=== PATIENT | male | born 1965 | race Caucasian/White ===

== ENCOUNTER 2016-09-16 16:10 | Inpatient (IN) | payer MEDICARE, OTHER ==
[~2016-09-16] VITALS: Ht 167.6 cm; Wt 71.0 kg
[~2016-09-16 16:10] MED LIST: ATOM10 PO; FLUO-191 PO; LAMO25 PO; OLAN7.5T9 PO; PRAZ1 PO
[2016-09-16] MEDS ORDERED: ZOLPIDEM TARTRATE 10 MG TABLET PO PRN (19:45)
[2016-09-16 20:28] VITALS: BP 114/88
[2016-09-16 20:42] LABS: GLUCOSE,POINT OF CARE 133 MG/DL (70-110)
[2016-09-16] MEDS: NICOTINE 14 MG/24 HOUR PATCH TD SCH (20:56)
[2016-09-17 00:53] VITALS: BP 126/89
[2016-09-17 06:21] LABS: GLUCOSE,POINT OF CARE 115 MG/DL (70-110)
[2016-09-17 08:16] LABS: BASOPHILS % (AUTO) 0.8 % (0.0-2.0); EOSINOPHILS % (AUTO) 2.6 % (1.0-6.0); HEMATOCRIT 42.8 % (41-53); HEMOGLOBIN 13.7 g/dL (13.5-17.5); LYMPHOCYTES # (AUTO) 2.8 K/uL (1.0-4.8); LYMPHOCYTES % (AUTO) 38.4 % (22.0-44.0); MEAN CORPUSCULAR HEMOGLOBIN 30.9 pg (26.0-34.0); MEAN CORPUSCULAR HGB CONC 32.1 G/dL (31.0-37.0); MEAN CORPUSCULAR VOLUME 96 fL (80-100); MONOCYTES # (AUTO) 0.4 K/uL (0.1-1.0); MONOCYTES % (AUTO) 5.9 % (2.0-9.0); NEUTROPHILS # (AUTO) 3.8 K/uL (1.8-7.7); NEUTROPHILS % (AUTO) 52.3 % (40.0-70.0); PLATELET COUNT (AUTO) 164 K/uL (150-450); RED BLOOD CELL COUNT(AUTO) 4.44 MIL/uL (4.50-5.90); RED CELL DISTRIBUTION WIDTH 14.7 % (11.5-14.5); WHITE BLOOD COUNT (AUTO) 7.3 K/uL (4.5-11.0)
[2016-09-17 08:27] LABS: HEMOGLOBIN A1C 6.5 % (4.5-6.2)
[2016-09-17 08:28] VITALS: BP 132/85
[2016-09-17 08:43] LABS: ALANINE AMINOTRANSFERASE 112 U/L (12-78); ALBUMIN 3.1 g/dL (3.4-5.0); ANION GAP 6 mmol/L (8-16); ASPARTATE AMINOTRANSFERASE 80 U/L (15-37); BILIRUBIN,TOTAL 0.5 mg/dL (0.1-1.0); CALCIUM, TOTAL 8.7 mg/dL (8.8-10.5); CARBON DIOXIDE 30 mmol/L (22-29); CHLORIDE 107 mmol/L (98-107); CHOL/HDL RATIO 2.6 (4.2-7.3); CREATININE 1.06 mg/dL (0.60-1.30); GLOMERULAR FILTR. RATE CALC > 60 mL/min (>60); POTASSIUM 4.1 mmol/L (3.5-5.1); SODIUM SERUM 143 mmol/L (136-145); THYROID STIMULATING HORMONE 1.18 uIU/mL (0.36-3.74); TOTAL PROTEIN, SERUM 7.1 g/dL (6.4-8.2); UREA NITROGEN, BLOOD 22 mg/dL (7-18)
[2016-09-17] MEDS: NICOTINE 14 MG/24 HOUR PATCH TD SCH (09:49)
[2016-09-17] MEDS: DIVALPROEX SODIUM 500 MG DR TABLET PO SCH ×2 (12:30→17:33)
[2016-09-17] MEDS: LORazepam 2 MG TABLET PO PRN ×2 (12:30→17:14)
[2016-09-17 16:09] VITALS: BP 121/71
[2016-09-17 16:28] LABS: GLUCOSE,POINT OF CARE 111 MG/DL (70-110)
[2016-09-17] MEDS: OLANZapine 7.5 MG TABLET PO SCH (21:06)
[2016-09-17] MEDS ORDERED: ALBUTEROL SULFATE HFA 90 MCG/PUFF 8 GM INHALER IH PRN (22:00)
[2016-09-17] MEDS ORDERED: ACETAMINOPHEN 325 MG TABLET PO PRN (22:00)
[2016-09-17] MEDS ORDERED: IBUPROFEN 400 MG TABLET PO PRN (22:00)
[2016-09-18 07:21] LABS: GLUCOSE,POINT OF CARE 103 MG/DL (70-110)
[2016-09-18 08:19] VITALS: BP 112/62
[2016-09-18] MEDS: DULoxetine HCL 60 MG CAPSULE PO SCH (09:08)
[2016-09-18] MEDS: HydrOXYzine PAMOATE 25 MG CAPSULE PO SCH ×3 (09:08→16:39)
[2016-09-18] MEDS: DIVALPROEX SODIUM 500 MG DR TABLET PO SCH ×2 (09:09→16:39)
[2016-09-18] MEDS: NICOTINE 14 MG/24 HOUR PATCH TD SCH (09:09)
[2016-09-18 16:09] VITALS: BP 119/67
[2016-09-18 16:31] LABS: GLUCOSE,POINT OF CARE 148 MG/DL (70-110)
[2016-09-18] MEDS: OLANZapine 7.5 MG TABLET PO SCH (20:38)
[2016-09-19 00:11] VITALS: BP 117/69
[2016-09-19 06:07] LABS: GLUCOSE,POINT OF CARE 97 MG/DL (70-110)
[2016-09-19 08:31] VITALS: BP 119/73
[2016-09-19] MEDS: NICOTINE 14 MG/24 HOUR PATCH TD SCH (09:00)
[2016-09-19] MEDS: HydrOXYzine PAMOATE 25 MG CAPSULE PO SCH ×4 (10:31→16:57)
[2016-09-19] MEDS: DULoxetine HCL 60 MG CAPSULE PO SCH (10:31)
[2016-09-19] MEDS: DIVALPROEX SODIUM 500 MG DR TABLET PO SCH ×2 (10:31→16:57)
[2016-09-19 16:15] VITALS: BP 113/68
[2016-09-19 17:02] LABS: GLUCOSE,POINT OF CARE 148 MG/DL (70-110)
[2016-09-19] MEDS: OLANZapine 7.5 MG TABLET PO SCH (21:06)
[2016-09-20 07:02] LABS: GLUCOSE,POINT OF CARE 96 MG/DL (70-110)
[2016-09-20 07:04] VITALS: BP 112/71
[2016-09-20 08:09] VITALS: BP 114/80
[2016-09-20] MEDS: HydrOXYzine PAMOATE 25 MG CAPSULE PO SCH ×3 (09:08→17:12)
[2016-09-20] MEDS: DULoxetine HCL 60 MG CAPSULE PO SCH (09:08)
[2016-09-20] MEDS: NICOTINE 14 MG/24 HOUR PATCH TD SCH (09:09)
[2016-09-20] MEDS: DIVALPROEX SODIUM 500 MG DR TABLET PO SCH ×2 (09:09→17:12)
[2016-09-20 16:12] VITALS: BP 135/80
[2016-09-20 16:52] LABS: GLUCOSE,POINT OF CARE 125 MG/DL (70-110)
[2016-09-20] MEDS ORDERED: DOCUSATE SODIUM 100 MG CAPSULE PO PRN (17:45)
[2016-09-20] MEDS: OLANZapine 7.5 MG TABLET PO SCH (20:58)
[2016-09-21 00:01] VITALS: BP 111/70
[2016-09-21 07:12] LABS: GLUCOSE,POINT OF CARE 99 MG/DL (70-110)
[2016-09-21] MEDS: HydrOXYzine PAMOATE 25 MG CAPSULE PO SCH ×2 (08:14→13:03)
[2016-09-21] MEDS: DULoxetine HCL 60 MG CAPSULE PO SCH (08:14)
[2016-09-21] MEDS: DIVALPROEX SODIUM 500 MG DR TABLET PO SCH (08:14)
[2016-09-21] MEDS: NICOTINE 14 MG/24 HOUR PATCH TD SCH (08:15)
[2016-09-21 08:17] VITALS: BP 116/78
[2016-09-21] MEDS ORDERED: DIVA500T35 PO (13:30)
[2016-09-21] MEDS ORDERED: DULO60CA44 PO (13:30)
[2016-09-21] MEDS ORDERED: HYDR-4031 PO (13:30)
== END 2016-09-21 16:20 | disposition home or self-care (01) | DRG 885 ==
LOC: B2X 19:42
PROVIDERS: ADMIT Psychiatry & Neurology Psychiatry; ATTEND Psychiatry & Neurology Psychiatry
DX: F25.9 Schizoaffective disorder, unspecified (principal); R45.851 Suicidal ideations; F32.9 Major depressive disorder, single episode, unspecified; I10 Essential (primary) hypertension; J45.909 Unspecified asthma, uncomplicated; E11.9 Type 2 diabetes mellitus without complications; B18.2 Chronic viral hepatitis C; F19.10 Other psychoactive substance abuse, uncomplicated; K59.00 Constipation, unspecified; K21.9 Gastro-esophageal reflux disease without esophagitis; Z59.0 Homelessness; Z71.51 Drug abuse counseling and surveillance of drug abuser; Z88.1 Allergy status to other antibiotic agents; Z87.01 Personal history of pneumonia (recurrent)
CPT/HCPCS: 82962; 83036; 84439; 84443; 87081